=== PATIENT | male | born 1975 | race Caucasian/White ===

== ENCOUNTER 2024-01-21 06:15 | Emergency (ER) | payer MEDICAID ==
[~2024-01-21] VITALS: Ht 190.5 cm; Wt 88.8 kg
[2024-01-21] MEDS ORDERED: CEPH500C PO (06:55)
--- NOTE | 2024-01-21 06:55 | ED.PDOC ---
History of Present Illness(SKN HPI Comments A 48 YEAR OLD MALE PRESENTS TO THE ED WITH COMPLAINT OF BUMP ON FACE AND MILD SKIN RASH. PATIENT STATES HE HAS HAD A SMALL BUMP ON HIS FACE FOR THE PAST 2 MONTHS AND NOTES HE BEGAN TO EXPERIENCE A MILD RED SKIN RASH AND REDNESS TO THE SMALL BUMP OVER THE LAST FEW DAYS, PROMPTING HIM TO COME INTO THE ED FOR EVALUATION. PATIENT DENIES FEVER, CHILLS, SHORTNESS OF BREATH, CHEST PAIN, ABDOMINAL PAIN, NAUSEA, VOMITING, HEADACHE, OR OTHER COMPLAINTS. NO OTHER SYMPTOMS OR MODIFYING FACTORS AT THIS TIME. PATIENT IS ALERT, ORIENTED X 4, AND HAS STEADY GAIT. Chief Complaint: Wound Check Time Seen by MD: 06:28 History of Present Illness: Nurses Notes, Medications, Allergies Home Meds Active Scripts Cephalexin Monohydrate (Cephalexin) 500 Mg Cap, 1 CAP PO QID, #40 CAP Prov:MICHAEL HANNA 01/21/24 Information Source: Patient Mode of Arrival: Ambulatory Severity: Moderate Timing: Months Duration: Since onset Prehospital treatment: None Location: Face Mechanism: Spontaneous Onset Developed: Rash Occurence: Indoors Object: None Condition of Object: None Retained Foreign Body: No Wound Type: Other (CYST) Immunization Status of Animal: NA Tetanus: Unknown History of: None Associated Signs and Symptoms: Redness, Pain Past Medical History PAST MEDICAL HISTORY: Arthritis Surgical History: Denies all surgeries Family History Family History: Reviewed,noncontributory to illness Social History Smoker: Non-Smoker Alcohol: Denies ETOH Use Drugs: Denies Drug Use Lives In: Home Constitutional: denies: chills, diaphoresis, fatigue, fever, malaise, sweats, weakness, others EENTM: denies: blurred vision, double vision, ear bleeding, ear discharge, ear drainage, ear pain, ear ringing, eye pain, eye redness, hearing loss, mouth pain, mouth swelling, nasal discharge, nose bleeding, nose congestion, nose pain, photophobia, tearing, throat pain, throat swelling, voice changes, others Respiratory: denies: cough, hemoptysis, orthopnea, SOB at rest, shortness of breath, SOB with excertion, stridor, wheezing, others Cardiovascular: denies: chest pain, dizzy spells, diaphoresis, Dyspnea on exertion, edema, irregular heart beat, left arm pain, lightheadedness, palpitations, PND, syncope, others Gastrointestinal: denies: abdomen distended, abdominal pain, blood streaked bowels, constipated, diarrhea, dysphagia, difficulty swallowing, hematemesis, melena, nausea, poor appetite, poor fluid intake, rectal bleeding, rectal pain, vomiting, others Genitourinary: denies: burning, dysuria, flank pain, frequency, hematuria, incontinence, penile discharge, penile sore, pain, testicle pain, testicle swelling, urgency, others Neurological: denies: dizziness, fainting, headache, left sided numbness, left sided weakness, numbness, paresthesia, pre-existing deficit, right sided numbness, right sided weakness, seizure, speech problems, tingling, tremors, weakness, others Musculoskeletal: denies: back pain, gout, joint pain, joint swelling, muscle pain, muscle stiffness, neck pain, others Integumetry: reports: lumps (SMALL CYST ON FACE), rash (SKIN RASH OF FACE); denies: bruises, change in color, change in hair/nails, dryness, laceration, lesions, wounds, others Allergic/Immunocompromised: denies: Difficulty Healing, Frequent Infections, Hives, Itching, others Hematologic/Lymphatic: denies: anemia, blood clots, easy bleeding, easy bruising, swollen glands, others Endocrine: denies: excessive hunger, excessive sweating, excessive thirst, excessive urination, flushing, intolerance to cold, intolerance to heat, unexplained weight gain, unexplained weight loss, others Psychiatric: denies: anxiety, bipolar disorder, depression, hopeless, panic disorder, schizophrenia, sleepless, suicidal, others All Other Systems: Reviewed and Negative Physical Exam General Appearance: No Apparent Distress, Normal HEENT: Normal ENT Inspection, PERRL/EOMI, Pharynx Normal, TMs Normal, Other (CYSTIC LUMP ON LEFT UPPER NASAL WALL WITH LOCALIZED REDNESS AND TENDERNESS.) Neck: Full Range of Motion, Non-Tender, Normal, Normal Inspection Respiratory: Chest Non-Tender, Lungs Clear, No Accessory Muscle Use, No Respiratory Distress, Normal Breath Sounds Cardiovascular: No Edema, No JVD, No Murmur, No Gallop, Normal Peripheral Pulses, Regular Rate/Rhythm Breast Exam: Deferred Gastrointestinal: No Organomegaly, Non Tender, No Pulsatile Mass, Normal Bowel Sounds, Soft Genitalia: Deferred Pelvic: Deferred Rectal: Deferred Extremities: No calf tenderness, Normal capillary refill, Normal inspection, Normal range of motion, Non-tender, No pedal edema Musculoskeletal : Apperance: Normal Neurologic: Alert, student teacher II-XII nml as Tested, No Motor Deficits, Normal Affect, Normal Mood, No Sensory Deficits Cerebellar Function: Normal Reflexes: Normal Skin: Dry, Normal Color, Warm, Other ([id number] CYSTIC LUMP WITH LOCALIZED REDNESS AND TENDERNESS ON LEFT UPPER NASAL WALL REGION, NO OPEN WOUND AND PUS DRAINAGE. ) Peripheral Pulses: 2+ carotid (R), 2+ carotid (L) Lymphatic: No Adenopathy Was a procedure done? Was a procedure done?: No Differential Diagnosis (INTG) Differential Diagnosis: N/A Differential Diagnosis: Atopic dermatitis, Contact Dermatitis, Urticaria, Other (CYST, SKIN PIMPLE, FURUNCLE) Differential Diagnosis: N/A Abscess: N/A Differential Diagnosis: N/A X-Ray, Labs, Meds, VS Vital Signs Date Time Temp Pulse Resp B/P (MAP) Pulse Ox O2 Delivery O2 Flow Rate FiO2 01/21/24 06:40 95 18 95 Room Air 01/21/24 06:24 98.9 95 18 120/90 (100) 95 X-Ray, Labs, Meds, VS Comment LABD ORDERED: NONE REVIEWED AND INTERPRETED RESULTS: NONE INDEPENDENT HISTORIANS: NONE PATIENT'S CASE AND RESULTS HAVE BEEN DISCUSSED WITH THE ED ATTENDING PHYSICIAN AND THEY AGREE WITH MY PLAN OF CARE. I HAVE INSTRUCTED THE PATIENT TO FOLLOW UP WITH HIS PCP IN 1-2 DAYS. THE PATIENT FULLY UNDERSTANDS THEIR RESULTS AND ARE AWARE THEY NEED TO FOLLOW UP WITH THEIR PCP FOR FURTHER EVALUATION IF THEIR SYMPTOMS PERSIST. Time of 1ST Reevaluation: 07:10 Reevaluation 1ST: Improved Patient Education/Counseling: Diagnosis, Treatment, Need For Follow Up Family Education/Counseling: Diagnosis, Treatment, Need For Follow Up Medical Screening: No EMC Exist At This Time Departure 1 Departure Time of Disposition: 07:10 Impression: Primary Impression: Cyst of skin Disposition: 01 HOME / SELF CARE / HOMELESS Condition: Stable Additional Instructions: FOLLOW-UP WITH PCP IN 1 TO 2 DAYS. TAKE MEDICATIONS PRESCRIBED. RETURN TO ED FOR ANY NEW OR WORSENING SYMPTOMS. e-Prescriptions Cephalexin Monohydrate (Cephalexin) 500 Mg Cap 1 CAP PO QID, #40 CAP Prov: MICHAEL HANNA 01/21/24 Discharged With: Self Critical Care Note Critical Care Time?: No Stability Stability form required: No I personally scribed for MICHAEL HANNA ([email or web address]) on 01/21/24 at 06:55. Electronically submitted by Larry Torres ([email or web address]). MICHAEL HANNA Jan 21, 2024 06:55
[2024-01-21 07:20] VITALS: BP 121/84; PULSE 90; RESP 20; TEMP 98.9; O2SAT 96
== END 2024-01-21 07:27 | disposition home or self-care (01) ==
LOC: ER 06:15
DX: L72.9 Follicular cyst of the skin and subcutaneous tissue, unspecified (principal); M19.90 Unspecified osteoarthritis, unspecified site

== ENCOUNTER 2024-12-07 16:17 | Emergency (ER) | payer MEDICAID ==
[~2024-12-07] VITALS: Ht 190.5 cm; Wt 87.0 kg
[~2024-12-07 16:17] MED LIST: CEPH500C PO
--- NOTE | 2024-12-07 16:43 | ED.PDOC ---
Tara. trauma (HPI) HPI Comments 49 y/o M, with PMHx of arthritis presents to the ED for CC of s/p fall injury to left-sided back. Patient reports, that he accidently slipped on his stair and is now experiencing posterior left rib pain. Patient has two large contusion to his left posterior rib region approximately two palm sizes. Patient denies loss of consciousness, head injury, dizziness, nausea, or vomiting. No other symptoms or modifying factors are present at this time. Vital signs were stable. Chief Complaint: Fall Injury Time Seen by MD: 16:30 Reviewed notes: Nurses Notes, Medications, Allergies Allergies: Coded Allergies: NO KNOWN ALLERGIES (Unverified , 12/07/24) Home Meds Active Scripts Cephalexin Monohydrate (Cephalexin) 500 Mg Cap, 1 CAP PO QID, #40 CAP Prov:MICHAEL HANNA 01/21/24 Information Source: Patient Mode of Arrival: Ambulatory Severity: Moderate Timing: Minutes Duration: Since onset Prehospital treatment: None Location: Other (Left-sided back) Location of laceration: None Mechanism: Blunt trauma, Fall Associated signs and symtoms: None Past Medical History PAST MEDICAL HISTORY: Arthritis Surgical History: Denies all surgeries Family History Family History: Reviewed,noncontributory to illness Social History Smoker: Non-Smoker Alcohol: Denies ETOH Use Drugs: Denies Drug Use Lives In: Home Constitutional: denies: chills, diaphoresis, fatigue, fever, malaise, sweats, weakness, others EENTM: denies: blurred vision, double vision, ear bleeding, ear discharge, ear drainage, ear pain, ear ringing, eye pain, eye redness, hearing loss, mouth pain, mouth swelling, nasal discharge, nose bleeding, nose congestion, nose pain, photophobia, tearing, throat pain, throat swelling, voice changes, others Respiratory: denies: cough, hemoptysis, orthopnea, SOB at rest, shortness of breath, SOB with excertion, stridor, wheezing, others Cardiovascular: denies: chest pain, dizzy spells, diaphoresis, Dyspnea on exertion, edema, irregular heart beat, left arm pain, lightheadedness, palpitations, PND, syncope, others Gastrointestinal: denies: abdomen distended, abdominal pain, blood streaked bowels, constipated, diarrhea, dysphagia, difficulty swallowing, hematemesis, melena, nausea, poor appetite, poor fluid intake, rectal bleeding, rectal pain, vomiting, others Genitourinary: denies: burning, dysuria, flank pain, frequency, hematuria, i ncontinence, penile discharge, penile sore, pain, testicle pain, testicle swelling, urgency, others Neurological: denies: dizziness, fainting, headache, left sided numbness, left sided weakness, numbness, paresthesia, pre-existing deficit, right sided numbness, right sided weakness, seizure, speech problems, tingling, tremors, weakness, others Musculoskeletal: reports: others (Left-sided posterior back pain); denies: back pain, gout, joint pain, joint swelling, muscle pain, muscle stiffness, neck pain Integumetry: denies: bruises, change in color, change in hair/nails, dryness, laceration, lesions, lumps, rash, wounds, others Allergic/Immunocompromised: denies: Difficulty Healing, Frequent Infections, Hives, Itching, others Hematologic/Lymphatic: denies: anemia, blood clots, easy bleeding, easy bruising, swollen glands, others Endocrine: denies: excessive hunger, excessive sweating, excessive thirst, excessive urination, flushing, intolerance to cold, intolerance to heat, unexplained weight gain, unexplained weight loss, others Psychiatric: denies: anxiety, bipolar disorder, depression, hopeless, panic disorder, schizophrenia, sleepless, suicidal, others All Other Systems: Reviewed and Negative Physical Exam General Appearance: Moderate Distress (Due to left-sided back pain concerns.), Normal HEENT: Normal ENT Inspection, Pharynx Normal, TMs Normal Neck: Full Range of Motion, Non-Tender, Normal, Normal Inspection Respiratory: Chest Non-Tender, Lungs Clear, No Accessory Muscle Use, No Respiratory Distress, Normal Breath Sounds Cardiovascular: No Edema, No JVD, No Murmur, No Gallop, Normal Peripheral Pulses, Regular Rate/Rhythm Breast Exam: Deferred Gastrointestinal: No Organomegaly, Non Tender, No Pulsatile Mass, Normal Bowel Sounds, Soft Genitalia: Deferred Pelvic: Deferred Rectal: Deferred Extremities: No calf tenderness, Normal inspection, Non-tender Musculoskeletal : Location: Left Extremity Location: Back (Patient has a large palm sized contusion to the lateral aspect of the central back retracting ribs six through 10. Additional superior contusion noted. Tenderness to palpation throughout. No crepitus. ) Apperance: Normal Neurologic: Alert Cerebellar Function: NOT DONE Reflexes: NOT DONE Skin: Dry, Normal Color, Warm Lymphatic: No Adenopathy Was a procedure done? Was a procedure done?: No Differential Diagnosis Multiple Trauma: Fractures, Contusion, Hematoma X-Ray, Labs, Meds, VS Vital Signs Date Time Temp Pulse Resp B/P (MAP) Pulse Ox O2 Delivery O2 Flow Rate FiO2 12/07/24 17:17 82 18 97 Room Air 12/07/24 17:17 97.8 82 18 155/92 (113) 97 97.8 12/07/24 16:18 97.9 87 18 140/99 99 97.9 Current Medications Medications (Trade) Dose Ordered Sig/Iss Route Start Time Stop Time Status Last Admin Ketorolac Tromethamine (Toradol Injection) 30 mg ONCE ONCE IM 12/07/24 16:45 12/07/24 16:46 DC 12/07/24 17:27 Acetaminophen/ Hydrocodone Bitart ([place] 10/325MG Tab) 1 tab ONCE ONCE PO 12/07/24 16:45 12/07/24 16:46 DC 12/07/24 17:28 X-Ray, Labs, Meds, VS Comment All studies performed the ED were evaluated by me personally. No definitive fractures noted. Patient appears to have had a old scapular fracture. Advised patient that even if he had a hairline fracture that was not obvious today, management would be the same with pain medications and ice. Time of 1ST Reevaluation: 18:28 Reevaluation 1ST: Improved Consultation: PCP Patient Education/Counseling: Diagnosis, Treatment Family Education/Counseling: Diagnosis, Treatment, No Family Present Departure 1 Departure Time of Disposition: 18:28 Impression: Primary Impression: Back contusion Disposition: HOME / SELF CARE / HOMELESS Condition: Stable Additional Instructions: Advised patient utilize pain medication as needed for symptomatic relief as well as ice therapy. e-Prescriptions Hydrocodone-Acetaminophen (Hydrocodone Bitartrate/AC 10-325 mg) 1 Tab Tab 1 TAB PO Q8HP PRN, #15 TAB Prov: ANDRES WINCHESTER PAC 12/07/24 Ibuprofen Micronized (Ibuprofen) 800 Mg Tab 800 MG PO Q8HP PRN, #20 TAB Prov: ANDRES WINCHESTER PAC 12/07/24 Discharged With: Self, Friend Critical Care Note Critical Care Time?: No Stability Stability form required: No Heart Score Heart Score: Heart Score Response (Comments) Value History N/A 0 EKG N/A 0 Age N/A 0 Risk Factors N/A 0 Troponin N/A 0 Total 0 I personally scribed for ANDRES WINCHESTER PAC ([email or web address]) on 12/07/24 at 16:43. Electronically submitted by Leonie Fong ([email or web address]). ANDRES WINCHESTER PAC Dec 07, 2024 16:43
[2024-12-07 17:17] VITALS: BP 155/92; PULSE 82; TEMP 97.8; O2SAT 97
[2024-12-07] MEDS: KETOROLAC TROMETH 60MG/2ML VIAL IM ONE (17:27)
[2024-12-07] MEDS: HYDROcodone-ACET 10/325MG TAB PO ONE (17:28)
--- NOTE | 2024-12-07 17:33 | DVH ---
CLINICAL INDICATION: Fall/left-sided posterior trauma TECHNIQUE: 5 radiographic views of the left ribs were obtained. Comparison: None FINDINGS/IMPRESSION: Single view of the chest shows compression plate along the distal left clavicle maintaining normal jf ny alignment from a previous clavicular fracture. There are no infiltrates or effusions. There is n o pneumothorax. Cortical irregularity of the left scapula age of this finding uncertain recommend correlation for cur rent scapular pain on the left. In light of the clavicular fracture is May have occurred at the time of that injury.
[2024-12-07] MEDS ORDERED: IBUP-1455 PO (18:30)
[2024-12-07] MEDS ORDERED: HYDR-4798 PO (18:30)
[2024-12-07 18:34] VITALS: RESP 18
== END 2024-12-07 18:40 | disposition home or self-care (01) ==
LOC: ER 16:17
DX: S20.229A Contusion of unspecified back wall of thorax, initial encounter (principal); M19.90 Unspecified osteoarthritis, unspecified site; Z79.899 Other long term (current) drug therapy; W01.0XXA Fall on same level from slipping, tripping and stumbling without subsequent striking against object, initial encounter; Y93.89 Activity, other specified; Y92.89 Other specified places as the place of occurrence of the external cause; Y99.8 Other external cause status
CPT/HCPCS: 71101; 96372; 99283; J1885